=== PATIENT | male | born 1960 | race Caucasian/White ===

== ENCOUNTER 2017-05-13 10:44 | Observation (INO) | payer BC ==
[2017-05-13] MEDS ORDERED: NS 0.9% 1000 ML* 1,000 ML IV ONE (10:55)
[2017-05-13 11:17] LABS: ABS Basophils 0 10^3/ul (0-0.2); ABS Eosinophils 0.3 10^3/ul (0-0.6); ABS Monocytes 0.6 10^3/ul (0-0.8); ABS Neutrophils 3.8 10^3/ul (1.5-7.7); ABS Nucleated RBC 0 10^3/ul; Eosinophil % 3.4 % (0-6); Hematocrit 41 % (42-52); Hemoglobin 14.2 g/dl (14.0-18.0); Lymphocyte % 38.7 % (25-47); Mean Corpuscular HGB Conc 35 g/dl (31-36); Mean Corpuscular Hemoglobin 32 pg (27-31); Mean Corpuscular Volume 93 fL (80-94); Mean Platelet Volume 7 um3 (7.4-10.4); Nucleated Red Blood Cells % 0; Platelet Count 279 10^3/ul (150-450); Red Blood Count 4.38 10^6/ul (4.0-5.4); Red Cell Distribution Width 13 % (10.5-15); White Blood Count 7.7 10^3/ul (3.5-10.8)
--- NOTE | 2017-05-13 11:20 | RAD ---
HISTORY: Stroke, right jaw and arm numbness COMPARISONS: None TECHNIQUE: Multiple contiguous axial CT scans were obtained of the head without intravenous contrast. FINDINGS: HEMORRHAGE/INFARCT: There is no hemorrhage or acute infarct. MASSES/SHIFT: There is no mass or shift. EXTRA-AXIAL SPACES: There are no extra-axial fluid collections. SULCI AND VENTRICLES: The sulci and ventricles are normal in size and position for the patient's stated age. CEREBRUM: There are no focal parenchymal abnormalities. BRAINSTEM: There are no focal parenchymal abnormalities. CEREBELLUM: There are no focal parenchymal abnormalities. VESSELS: The vessels are grossly normal. PARANASAL SINUSES: The paranasal sinuses are clear. ORBITS: The orbits are unremarkable. BONES AND SOFT TISSUE: No bone or soft tissue abnormalities are noted. OTHER: None IMPRESSION: NO ACUTE INTRACRANIAL PATHOLOGY.
[2017-05-13 11:33] LABS: INR 0.91 (0.77-1.02)
[2017-05-13 11:42] LABS: EGFR Non-African American 76.5 (>60)
--- NOTE | 2017-05-13 12:41 | RAD ---
HISTORY: Neurological changes COMPARISONS: April 14, 2010 VIEWS: 1: frontal portable view of the chest at 12:08 PM FINDINGS: LINES AND TUBES: None. CARDIOMEDIASTINAL SILHOUETTE: The cardiomediastinal silhouette is normal for portable technique. PLEURA: The costophrenic angles are sharp. No pleural abnormalities are noted. LUNG PARENCHYMA: There is a nodular density of left lower lung field, likely a nipple shadow. This can be identified on the 2009 examination in retrospect and is stable. ABDOMEN: The upper abdomen is clear. There is no subphrenic gas. BONES AND SOFT TISSUES: No bone or soft tissue abnormalities are noted. IMPRESSION: NO ACTIVE CARDIOPULMONARY DISEASE.
[2017-05-13] MEDS ORDERED: Aspirin EC TAB* 325 MG PO ONE (13:20)
[2017-05-13] MEDS ORDERED: Iohexol 350* (CONTRAST) 500 ML MDV IV ONE (13:23)
--- NOTE | 2017-05-13 14:03 | RAD ---
HISTORY: TIA COMPARISONS: None TECHNIQUE: Multiple contiguous axial CT scans were obtained of the head and neck After the administration of nonionic intravenous contrast timed to the systemic arterial phase of contrast enhancement. Coronal and sagittal multiplanar reformations are submitted for review. Multiple 3-D maximum intensity projection reconstructions are also submitted for review. FINDINGS: CTA NECK: AORTIC ARCH: There is a bovine configuration, with the left common carotid artery originating from the brachiocephalic trunk. There is no ostial or proximal stenosis of the cephalic great vessels. RIGHT VERTEBRAL ARTERY: The right vertebral artery is patent along its course, without stenosis. LEFT VERTEBRAL ARTERY: The left vertebral artery is patent along its course, without stenosis. DOMINANCE: The vertebral arteries are codominant. RIGHT COMMON CAROTID ARTERY: The right common carotid artery is patent. The right carotid bifurcation occurs at C3-C4 RIGHT INTERNAL CAROTID ARTERY: There is no right internal carotid artery stenosis by NASCET criteria. RIGHT EXTERNAL CAROTID ARTERY: The right external carotid artery is unremarkable. LEFT COMMON CAROTID ARTERY: The left common carotid artery is patent. The left carotid bifurcation occurs at C3-C4 LEFT INTERNAL CAROTID ARTERY: There is no left internal carotid artery stenosis by NASCET criteria. LEFT EXTERNAL CAROTID ARTERY: The left external carotid artery is unremarkable. VENOUS CIRCULATION: The venous system is unremarkable. SALIVARY GLANDS: The parotid glands, submandibular glands, sublingual glands are normal. NASAL CAVITY/NASOPHARYNX: The nasal cavity and nasopharynx are normal. ORAL CAVITY/OROPHARYNX: The oral cavity is obscured by streak artifact from dental amalgam. The visualized oral cavity and oropharynx are unremarkable. LARYNGEAL APPARATUS/HYPOPHARYNX: The laryngeal apparatus and hypopharynx are normal. UPPER AIRWAY/UPPER ESOPHAGUS: The visualized upper airway and esophagus are normal. LUNG APICES: The lung apices are clear. THYROID GLAND: The thyroid gland is normal. LYMPH NODES: There is no lymphadenopathy by size criteria. BONES AND SOFT TISSUES: Degenerative changes are noted most pronounced at C6-C7. CTA HEAD: INTRACRANIAL CIRCULATION: There is no aneurysm, vascular malformation, occlusion, or stenosis of the visualized intracranial circulation. The anterior communicating artery complex is clear. A right posterior communicating artery is identified. VENOUS CIRCULATION: The venous system is unremarkable. PERFUSION: There is no obvious parenchymal perfusion deficit. HEMORRHAGE/INFARCT: There is no hemorrhage or acute infarct. MASSES/SHIFT: There is no mass or shift. EXTRA-AXIAL SPACES: There are no extra-axial fluid collections. SULCI AND VENTRICLES: The sulci and ventricles are normal in size and position for the patient's stated age. CEREBRUM: There are no focal parenchymal abnormalities. BRAINSTEM: There are no focal parenchymal abnormalities. CEREBELLUM: There are no focal parenchymal abnormalities. PARANASAL SINUSES: The paranasal sinuses are clear. ORBITS: The orbits are unremarkable. BONES AND SOFT TISSUE: No bone or soft tissue abnormalities are noted. OTHER: There is no abnormal enhancement. IMPRESSION: 1. NO INTERNAL CAROTID ARTERY STENOSIS BY NASCET CRITERIA. 2. NO ANEURYSM, VASCULAR MALFORMATION, OCCLUSION, OR STENOSIS OF THE VISUALIZED INTRACRANIAL CIRCULATION.. CPT II Codes: 3100F
[2017-05-13] MEDS ORDERED: Ondansetron INJ* 2 MG/ML VIAL IV PRN (14:13)
[2017-05-13] MEDS ORDERED: Acetaminophen TAB* 325 MG PO PRN (14:13)
--- NOTE | 2017-05-13 16:03 | RAD ---
Indication: Transient ischemic attack. Sagittal and axial T1, axial T2 FLAIR, diffusion, susceptibility weighted images of the brain were obtained. No prior study is available for comparison. Ventricular structures are midline. No midline shift is noted. The extraction spaces are unremarkable. There is no evidence of intracranial mass or hemorrhage. No other high or low signal lesions are identified. No restriction of diffusion is noted. Susceptibility weighted images demonstrates no evidence of susceptibility artifact. The FLAIR images demonstrates no evidence of abnormal signal. The calvaria is unremarkable. Mastoid air cells and paranasal sinuses are unremarkable. IMPRESSION: Unremarkable MRI of the brain.
--- NOTE | 2017-05-13 19:41 | HP ---
CC: Dr. Baker * HISTORY AND PHYSICAL: DATE OF ADMISSION: 05/13/17 PRIMARY CARE PHYSICIAN: None. ATTENDING PHYSICIAN WHILE IN THE HOSPITAL: José Miguel Marks MD * (report dictated by Ector Hogan NP). CHIEF COMPLAINT: 1. Right arm numbness. 2. Right facial numbness. HISTORY OF PRESENT ILLNESS: Mr. Reynolds is a 57-year-old male patient. He has a history of CAD. He has had a mild NH in the past, hypertension, hyperlipidemia, and ANGELINA. He comes in to our ER today stating that he woke up in the middle of the night last night. He had an episode where his arm felt funny, went back to bed. He woke up again and it was still there, lasted for about 30 minutes and then it went away, but he also noticed that the right side of his face was feeling funny as well. He says it felt like numbness and tingling both in the arm and in the face. He says it went away, but he was concerned because it was one sided. He did not have any weakness or any facial drooping. He lifted both of his arms and held them out in front of him and he did not notice any dropping in the arm. He denied having any trouble with his gait or any numbness or tingling to the leg, and no trouble with his speech, but he was concerned because of the numbness that it could maybe represent a stroke and he came in to the hospital to be evaluated. He denied having any chest pressure. No chest pain. He denied having any shortness of breath or any nausea associated with this. No visual disturbances. Again, no facial drooping. He came in to the ED. He was evaluated. There was concern for possible TIA and we were asked to evaluate for admission. PAST MEDICAL HISTORY: Significant for: 1. CAD. 2. NH. 3. History of hypertension. 4. Hyperlipidemia. 5. ANGELINA. PAST SURGICAL HISTORY: He has had inguinal hernia repair. MEDICATIONS: The home meds include: 1. Crestor 5 mg daily. 2. Benadryl 25 mg at bedtime as needed. 3. Lopressor 25 mg p.o. b.i.d. 4. Aspirin 81 mg at bedtime. ALLERGIES TO MEDICATIONS: Include no known drug allergies. FAMILY HISTORY: His mother's history was reviewed. He denies his mother having any heart attacks, strokes, diabetes. His father did have a history of CAD and questionable Parkinson's. SOCIAL HISTORY: He does not smoke. Rarely drinks alcohol. He is in real estate. Surrogate decision maker is his . REVIEW OF SYSTEMS: There is no documented fever. He denied having any significant weight change. There was no double vision. He denies having any ear discharge. There was no rhinorrhea. No sore throat. No thyroid enlargement. He denies having any chest pain or orthopnea. No nocturnal dyspnea. There was no abdominal pain. There was no nausea. No vomiting. No dysuria, no frequency. No seizure. No loss of consciousness. No pruritus. No skin ulcerations. Review of 14 systems completed, all others negative. PHYSICAL EXAMINATION GENERAL: At this time, Mr. Reynolds is a 57-year-old male patient. He is sitting in the ER stretcher. He does not appear to be in any acute distress. VITAL SIGNS: Blood pressure 115/82, pulse 66, respirations 18, O2 sat 98%, temperature 97.8. HEENT: Head: Atraumatic, normocephalic. Eyes: EOMs are intact. Sclerae anicteric and not pale. NECK: Supple. Throat: Oral mucosa appears to be moist. No oropharyngeal erythema. LUNGS: Clear to auscultation bilaterally. No wheezes, rales, or rhonchi. HEART: Sounds S1, S2. Regular rate and rhythm. No murmurs, rubs, or gallops. ABDOMEN: Soft. It was flat, nontender. Bowel sounds were present. EXTREMITIES: Pulses were 2+ throughout. He had 5/5 strength. No peripheral edema. NEUROLOGIC: The patient is awake, he is alert. His speech is clear. Tongue is midline. Cranial nerves II through XII were intact. [id number] intact bilaterally. Uruh-iq-qcll intact bilaterally. He had no gross focal deficits. SKIN: Grossly intact. DIAGNOSTIC STUDIES/LAB DATA: WBC is 7.7, RBC of 4.38, hemoglobin 14.2, hematocrit 41, platelet count 279,000. INR 0.91, PTT 26.2. Sodium was 137, potassium 4.1, chloride 108, bicarb 24, BUN 15, creatinine of 1, glucose of 106 , lactic 1.2, calcium of 9.2. Total bili 0.4, AST 17, ALT 18, alk phos 38. Troponin 0. Albumin of 4.1. LDL was 63. The patient did have a brain CT obtained today which revealed no acute intracranial pathology. Chest x-ray showed no acute cardiopulmonary disease. There was a CTA of the head and neck. No internal carotid artery stenosis by NASCET criteria. No aneurysm, vascular malformation, occlusion or stenosis were visualized in the cranial circulation. EKG obtained today showed normal sinus rhythm, rate of 69. No ST elevations or T- wave inversions were noted. Old medical records were reviewed. ASSESSMENT AND PLAN: Mr. Reynolds is a 57-year-old male patient with a known history of hypertension, hyperlipidemia, history of coronary artery disease, coming into ED today with complaints of numbness to the right arm. We were asked to evaluate for admission. He will be admitted under observation status for: 1. Right arm weakness. Concern for transient ischemic attack. At this point, Dr. Baker did evaluate the patient. Dr. Baker has already ordered MRI. He did order an echo as well. In addition to this, CTA has been done. We will the continue the patient on aspirin. We will get an A1c and lipid panel fasting in the morning. I will get neuro checks every 4 hours, place the patient on telemetry and will follow him closely. Again, Dr. Baker has already evaluated the patient. We will continue the patient on statin therapy for now and antiplatelet therapy and we will continue to follow him closely with neuro checks. 2. History of myocardial infarction and coronary artery disease. Continue the beta-blair, aspirin, statin therapy. 3. Hypertension. Continue the beta-blair. 4. Hyperlipidemia. Continue the statin therapy. 5. Obstructive sleep apnea. CPAP has been ordered. 6. DVT prophylaxis. I did order heparin subcu and SCDs. 7. Code status. Full code. 8. Fluids, electrolytes, nutrition. He can have a heart healthy diet. TIME SPENT: Time spent on the admission was approximately 60 minutes, greater than half the time was spent [id number] with the patient obtaining my history and physical, other half time was spent going over the plan of care with the patient and implementing plan of care. I did discuss the plan of care with my attending, Dr. Marks; he is in agreement. ECTOR HOGAN NP [id number]/[facility] #: [id number] GARO
[2017-05-13] MEDS: Metoprolol Tartrate TAB* 25 MG PO SCH (21:33)
[2017-05-13] MEDS: Heparin VIAL(*) 5000 UNITS/ML VIAL (FIVE THOUSAND) SUBCUT SCH (21:34)
--- NOTE | 2017-05-13 21:49 | CONS ---
CC: Leroy Sanz MD * CONSULTATION REPORT: DATE OF CONSULTATION: 05/13/17 CURRENT LOCATION: ED, bed 16. PRIMARY CARE PROVIDER: Leroy Sanz MD REASON FOR CONSULTATION: Right arm numbness and tingling, right face numbness and tingling. HISTORY OF PRESENT ILLNESS: Mr. Reynolds is a 57-year-old gentleman with a history of heart attack about 7 years ago, history of hypertension, hypercholesterolemia. He states that he does take a baby aspirin every night, but he has not taken one this morning. He has been in his usual state of health when last night at around 3 a.m. he woke up, he noticed that his right arm was numb, it involved his entire arm including the hand, it was circumferential. He states that he also felt some mild numbness in his right jaw and face. The symptoms he said lasted for approximately 30 to 45 minutes and then slowly improved. He went back to bed, when he got up this morning at 8 , he felt that he had some residual numbness in his right fingertips and that the numbness in his face had largely resolved. He denies any right lower extremity symptoms. He denies any left-sided symptoms. He denies any weakness. He had no speech changes, no vision changes, no headache, no facial droop that he is aware of, had no hearing loss or changes. He states that he does not feel weak nor did he feel weak at any point that he feels that his strength was full. He denies any recent illnesses, nausea, vomiting, diarrhea, constipation, fevers, chills, dysuria, frequency, urgency. He states that he is compliant with his medication. He denies any prior strokes. He is a previous smoker, but quit years ago. He said he occasionally will have a cigar. He has otherwise been in his usual state of health. He also has a history of sleep apnea and wears a CPAP at night. PAST MEDICAL HISTORY: Includes prior [place] 7 years ago, no stenting was done; hyperlipidemia; hypertension; sleep apnea. PAST SURGICAL HISTORY: Includes hernia repair. HOME MEDICATIONS: 1. Crestor 20 mg p.o. daily. 2. Metoprolol 25 mg p.o. b.i.d. 3. Aspirin 81 mg at night. ALLERGIES: No known drug allergies. FAMILY HISTORY: Significant for father with an [place]. No strokes in the family that he is aware of. History is otherwise noncontributory. SOCIAL HISTORY: He is a previous smoker, but none in years save for the occasional cigar. Drinks 2 to 3 glasses of wine per day. Denies any active drug use, although occasionally will smoke marijuana. He is semi-retired. He is building his own house. REVIEW OF SYSTEMS: In 14 organ systems as noted above, otherwise negative. PHYSICAL EXAMINATION: Blood pressure 115/82 to 131/107, pulse 66, respirations 16 to 25, pulse ox 96% to 98%. In general, he is a well-nourished, well- developed obese gentleman, sitting in his hospital [facility]. He is pleasant, well dressed, well groomed. HEENT: He is normocephalic, atraumatic. Sclerae anicteric. Mucous membranes are moist. Oropharynx is clear. Nares are patent. Neck: Supple. No thyromegaly. No carotid bruits. No meningismus. Chest: Clear to auscultation bilaterally. Cardiovascular: Regular rate and rhythm without murmurs, gallops, or rubs. Abdomen: Obese, nontender. Extremities: No clubbing, cyanosis, or edema. Skin: Warm and dry without lesions. Neurologic: He is awake, alert, oriented x3. His speech is fluent. There is no dysarthria. Repetition is intact. Recall of recent or remote events is intact. Vocabulary is intact. His mood is anxious. Affect, mood congruent. Cranial nerves II through XII. Pupils are equal, round, and reactive to light. Extraocular muscles are intact. Visual del cid are full. There is no nystagmus noted. His facial sensation is intact bilaterally. His face is symmetric. Hearing is intact bilaterally to finger rub. Tongue is midline. Palate raises symmetrically. Sternocleidomastoid and trapezius are both 5/5. Motor Exam: He is 5/5 through-out with tone and bulk normal. There is no drift in all 4 extremities. Sensation has largely resolved. He states that he has some mild tingling in his fingertips on the right side involving all fingertips, but there is no further numbness in the arms, legs, or face bilaterally. Intact to light touch and pinprick. His yrhkya-yo-fddv and rapid alternating movements are intact without dysmetria, tremor. DTRs are 1+ and symmetric in the upper and lower extremities with downgoing Babinski's bilaterally. NIH is calculated at zero. His paresthesias in the right hand are subjective in nature. There is no loss of sensation. DIAGNOSTIC STUDIES/LAB DATA: Lab work includes a CBC with diff significant for hematocrit of 41, MCH of 32, MPV of 7. INR of 0.91, PTT of 26.2. Complete metabolic profile is significant for a glucose of 106 to 110, lactic acid of 1.2. Triglycerides of 151, cholesterol of 133, LDL of 63, HDL of 39.9. CT of the head scan was personally reviewed, I see no acute intracranial abnormalities, agree with the radiologist's read. Echocardiogram, normal sinus rhythm, borderline left axis deviation, borderline T abnormalities in inferior leads, this is an unofficial interpretation. Chest x-ray, no active cardiopulmonary disease. ASSESSMENT AND PLAN: Mr. Reynolds is a 57-year-old gentleman with a history of prior myocardial infarction at about 7 years ago, hyperlipidemia, hypertension, both controlled with medication, history of sleep apnea, wears a CPAP at home. He does take a baby aspirin at night. No history of prior stroke. He presented to the hospital this morning after waking up at 3 a.m. with right arm and face numbness and tingling, lasted about 30 to 45 minutes, went back to sleep. When he woke up around 8 a.m., the symptoms had largely resolved with some subjective tingling in his fingertips on the right with no loss of sensation. His NIH stroke scale currently is calculated at 0. Given his history of coronary artery disease, his risk factors including hypertension and hypercholesterolemia, I am concerned that this could be a transient ischemic attack versus small stroke. That said, the plan is to bring him into the hospital for a full stroke workup. He will get an: 1. MRI of the brain without contrast. 2. CT angiogram of the head and neck. 3. Echocardiogram with bubble study. 4. Lab work to rule out reversible causes of stroke. 5. We will continue his aspirin, he has not received one this morning, I will give him a 325 mg dose now. Consider changing the Plavix, but we will hold for now. 6. Continue his Crestor. LDL cholesterol is good, less than 70. 7. Monitor him on the telemetry for any evidence of arrhythmias, which could be associated with an increased risk of stroke. 8. Given the fact that his symptoms are resolved, I would control his blood pressure as needed with medication adjustments currently. His last blood pressure was 131/107. He will be admitted for observation. 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 Thank you for the opportunity to participate in his care. We will continue to follow him closely. [id number]/[facility] #: [id number] GARO
[2017-05-14 05:21] LABS: ABS Basophils 0 10^3/ul (0-0.2); ABS Eosinophils 0.3 10^3/ul (0-0.6); ABS Lymphocytes 2.7 10^3/ul (1.0-4.8); ABS Monocytes 0.5 10^3/ul (0-0.8); ABS Neutrophils 2.9 10^3/ul (1.5-7.7); ABS Nucleated RBC 0 10^3/ul; Eosinophil % 4.9 % (0-6); Hematocrit 38 % (42-52); Hemoglobin 13.2 g/dl (14.0-18.0); Lymphocyte % 41.5 % (25-47); Mean Corpuscular HGB Conc 35 g/dl (31-36); Mean Corpuscular Hemoglobin 32 pg (27-31); Mean Corpuscular Volume 92 fL (80-94); Mean Platelet Volume 7 um3 (7.4-10.4); Nucleated Red Blood Cells % 0; Platelet Count 241 10^3/ul (150-450); Red Blood Count 4.14 10^6/ul (4.0-5.4); Red Cell Distribution Width 12 % (10.5-15); White Blood Count 6.5 10^3/ul (3.5-10.8)
[2017-05-14] MEDS: Heparin VIAL(*) 5000 UNITS/ML VIAL (FIVE THOUSAND) SUBCUT SCH ×2 (05:28→14:58)
[2017-05-14 05:33] LABS: EGFR Non-African American 74.8 (>60)
--- NOTE | 2017-05-14 08:07 | PN ---
Subjective Date of Service: 05/14/17 Interval History: No problems overnight. Numbness and tingling has resolved with no new symptoms. He feels well and anxious to go home today I personally reviewed his MRI brain and agree with the findings, No DWI/ADC change I reviewed CTA, no significant vascular disease I reviewed labwork: LDL cholesterol is good Echo pending Objective Active Medications: Acetaminophen (Tylenol Tab*) 650 mg PO Q4H PRN PRN Reason: FEVER/PAIN Aspirin (Aspirin Ec Low Dose*) 81 mg PO DAILY [facility] Atorvastatin Calcium (Lipitor*) 10 mg PO DAILY [facility] Heparin Sodium (Porcine) (Heparin Vial(*)) 5,000 units SUBCUT Q8HR [facility] Last Admin: 05/14/17 05:28 Dose: 5,000 units Metoprolol Tartrate (Lopressor Tab*) 25 mg PO BID [facility] Last Admin: 05/13/17 21:33 Dose: 25 mg Ondansetron HCl (Zofran Inj*) 4 mg IV Q6H PRN PRN Reason: NAUSEA Vital Signs 05/13/17 05/13/17 05/13/17 14:00 14:52 14:59 Temperature 98.6 F Pulse Rate 59 59 60 Respiratory 15 17 20 Rate Blood Pressure 123/80 123/80 (mmHg) O2 Sat by Pulse 98 95 95 Oximetry 05/13/17 05/13/17 05/13/17 16:11 19:02 20:00 Temperature 98.2 F 99.0 F Pulse Rate 60 69 Respiratory 16 20 20 Rate Blood Pressure 114/76 111/63 (mmHg) O2 Sat by Pulse 98 96 99 Oximetry 05/14/17 05/14/17 00:02 03:51 Temperature 98.4 F 97.7 F Pulse Rate 60 67 Respiratory 20 20 Rate Blood Pressure 115/82 110/66 (mmHg) O2 Sat by Pulse 99 94 Oximetry Oxygen Devices in Use Now: None Neurology Exam: General: Awake, Alert, Oriented x3 HEENT: Normocephelic/atraumatic, sclera anicteric, mucous membranes moist Neck: Supple Chest: Clear to auscultation bilaterally Cardiovascular: Regular rate and rhythm without murmurs, rubs, gallops Abdomen: Soft, nontender/nondistended Extremities: No clubbing, cyanosis, or edema Neurological Findings: Awake, Alert, Oriented x3 Speech: fluent without dysarthria, repetition intact Cranial Nerve: PEERL, EOM intact, VFF, no nystagmus, face symmetric bilaterally , facial sensation intact, hearing intact to finger rub bilaterally, palate elevates symmetrically, tongue midline Motor: 5/5 throughout, proximal and distal extremities x4 tone/bulk normal. No drift Sensation: intact to LT/PP bilaterally upper and lower extremities Deep Tendon Reflex: 2+ symmetric in the upper/lower extremities Finger to nose, rapid alternating movements intact without tremor Result Diagrams: 05/14/17 05:09 05/14/17 05:09 Assessment/Plan 57 year old with a history of [place], CAD, HTN, hyperlipidemia presented yesterday with right arm/face numbness, tingling 1. Workup at this point negative, awaiting Echocardiogram. If the Echo is ok, I am ok for discharge home with follow up. Likely TIA vs. Nerve compression in the right arm from sleeping on it. 2. Increase ASA to 325 mg q day, I spoke with patient about this 3. Continue Statin, LDL is good and within range 4. Continue control of HTN, good range 5. Non-smoker 6. I spoke with patient about returning to ER immediately with any new stroke like symptoms or return of symptoms 7. Needs follow up with me in 6-8 weeks.
[2017-05-14] MEDS ORDERED: Aspirin EC Low Dose* 81 MG TAB.EC PO SCH (09:00)
[2017-05-14] MEDS ORDERED: Atorvastatin* 10 MG TAB PO SCH (09:00)
[2017-05-14] MEDS: Metoprolol Tartrate TAB* 25 MG PO SCH (09:05)
--- NOTE | 2017-05-14 09:57 | PN ---
Subjective Date of Service: 05/14/17 Interval History: Patient seen and examined at bedside. Denies fever, chills, shortness of breath , chest discomfort, N/V/D, right UE weakness. Tele: Sinus rhythm, rate 60's. Family History: Unchanged from Admission Social History: Unchanged from Admission Past Medical History: Unchanged from Admission Objective Active Medications: Acetaminophen (Tylenol Tab*) 650 mg PO Q4H PRN Reason: FEVER/PAIN Aspirin (Aspirin Ec Low Dose*) 81 mg PO DAILY ERIC Atorvastatin Calcium (Lipitor*) 10 mg PO DAILY ERIC Heparin Sodium (Porcine) (Heparin Vial(*)) 5,000 units SUBCUT Q8HR ERIC Metoprolol Tartrate (Lopressor Tab*) 25 mg PO BID ERIC Ondansetron HCl (Zofran Inj*) 4 mg IV Q6H PRN Reason: NAUSEA Vital Signs - 8 hr 05/14/17 05/14/17 03:51 07:31 Temperature 97.7 F 98.1 F Pulse Rate 67 65 Respiratory 20 20 Rate Blood Pressure 110/66 106/72 (mmHg) O2 Sat by Pulse 94 94 Oximetry Oxygen Devices in Use Now: None Appearance: NAD, laying in bed Ears/Nose/Mouth/Throat: Mucous Membranes Moist Respiratory: Symmetrical Chest Expansion and Respiratory Effort, Clear to Auscultation Cardiovascular: NL Sounds; No Murmurs; No JVD, RRR Abdominal: NL Sounds; No Tenderness; No Distention Extremities: No Edema Skin: No Rash or Ulcers Neurological: Alert and Oriented x 3, NL Muscle Strength and Tone Lines/Tubes/Other Access: Clean, Dry and Intact Peripheral IV - site benign Nutrition: Taking PO's Result Diagrams: 05/14/17 05:09 05/14/17 05:09 Assess/Plan/Problems-Billing Mr. Reynolds is a 57 year old with a PMH significant for [place], CAD, HTN, hyperlipidemia who presented to the emergency room with right arm/face numbness and tingling - Patient Problems (1) Right arm weakness Code(s): R29.898 - OTH SYMPTOMS AND SIGNS INVOLVING THE MUSCULOSKELETAL SYSTEM SNOMED Code(s): 263698477 Comment: - Resolved - Suspect TIA vs. nerve compression - MRA head/neck and MRI brain pending - Echo pending - Neuro consult, input appreciated - ASA increased to 325 daily (2) CAD (coronary artery disease) Code(s): I25.10 - ATHSCL HEART DISEASE OF [place] CORONARY ARTERY W/O ANG PCTRS SNOMED Code(s): 18927362 Comment: - History, No chest pain at this time - Continue metoprolol, ASA and statin (3) HTN (hypertension) Code(s): I10 - ESSENTIAL (PRIMARY) HYPERTENSION SNOMED Code(s): 70048408 Comment: - Normotensive - Continue metoprolol (4) HLD (hyperlipidemia) Code(s): E78.5 - HYPERLIPIDEMIA, UNSPECIFIED SNOMED Code(s): 55242355 Comment: - Lipid panel WNL - Continue statin (5) ANGELINA (obstructive sleep apnea) Code(s): G47.33 - OBSTRUCTIVE SLEEP APNEA (ADULT) (PEDIATRIC) SNOMED Code(s): 56346578 Comment: - Continue CPAP (6) DVT prophylaxis Code(s): VBN9833 - SNOMED Code(s): 491164477 Comment: - SQ heparin and SCDs (7) Full code status Code(s): Z78.9 - OTHER SPECIFIED HEALTH STATUS SNOMED Code(s): 782803982 Status and Disposition: OBV. Discharge to home when medically stable, suspect later today.
[2017-05-14] MEDS ORDERED: Perflutren Lipid Microsphere* 3 ML VIAL ONE (11:59)
[2017-05-14 12:38] VITALS: BP 112/67
--- NOTE | 2017-05-14 14:27 | ECHO ---
Patient: JUAN SCHMITT [facility] Rec#: [id number] : 1960 Date: 05/14/2017 Age: 57y Height: 175.3 cm / 69.0 in Weight: 99.8 kg / 220.0 lbs Sex: M BSA: 2.15 Room#: [facility] Admit Date#: 05/13/2017 Type: Inpatient Referring: Layo Baker Reading: Carlos Eduardo Morton MD Wildland Firefighter: Maegan Jensen RN RDCS Wildland Firefighter: Mariam Wong RDCS CC: Leroy Sanz MD Transthoracic Echocardiogram Indication: TIA BP: 110/66 HR: 78 Rhythm: NSR Findings History: CAD, inferior wall ME in 2009, HTN, HLD, ANGELINA, increased BMI Technical Comments: The study is technically limited due to poor apical windows. The study is technically limited due to patient body habitus. Completed at 1310. Left Ventricle: The left ventricular chamber size is normal. Mild concentric left ventricular hypertrophy is observed. There is global hypokinesis of the left ventricle with minor regional variation. There is mildly decreased left ventricular systolic function. The estimated ejection fraction is 40-45%. There is an E to A reversal in the mitral valve flow pattern suggestive of diastolic dysfunction. Left Atrium: The left atrial chamber size is normal. Right Ventricle: The right ventricular cavity size is normal. The right ventricular global systolic function is mildly reduced. Right Atrium: The right atrial cavity size is normal. The bubble study is negative. A patent foramen ovale is not demonstrated with color Doppler and agitated contrast. Aortic Valve: The aortic valve is trileaflet. The aortic valve leaflets are mildly thickened. There is trace to mild aortic regurgitation. There is no evidence of aortic stenosis. Mitral Valve: Mild mitral annular calcification present. The mitral valve leaflets are mildly thickened. There is trace to mild mitral regurgitation. There is no evidence of mitral stenosis. Tricuspid Valve: The tricuspid valve leaflets are normal. There is trace tricuspid regurgitation. No pulmonary hypertension is noted. There is no tricuspid stenosis. Pulmonic Valve: The pulmonic valve appears normal. There is trace to mild pulmonic regurgitation. There is no pulmonic stenosis. Pericardium: There is no significant pericardial effusion. A pericardial fat pad is visualized. Aorta: There is mild dilatation of the ascending aorta. There is mild dilatation of the aortic arch. There is mild dilatation of the aortic root. Pulmonary Artery: The main pulmonary artery appears normal. Venous: The venous system is not well visualized. The inferior vena cava is not visualized. Contrast: Normal saline was used as contrast for the bubble study. Images 2 and 3 at end of study. Definity was used to enhance endocardial border definition. A total of 3 ml of diluted Definity was given IV. Summary: There was not any prior study for comparison. Conclusions The left ventricular chamber size is normal. Mild concentric left ventricular hypertrophy is observed. There is mildly decreased left ventricular systolic function. The estimated ejection fraction is 40-45%. There is an E to A reversal in the mitral valve flow pattern suggestive of diastolic dysfunction. There is global hypokinesis of the left ventricle with minor regional variation. A patent foramen ovale is not demonstrated with color Doppler and agitated contrast. There is trace to mild aortic regurgitation. There is trace to mild mitral regurgitation. There is trace tricuspid regurgitation. There is trace to mild pulmonic regurgitation. There is mild dilatation of the ascending aorta. There is mild dilatation of the aortic arch. There is mild dilatation of the aortic root. Measurements Name Value Normal Range RVDdMajor (2D) 3.9 cm (2.2 - 4.4) RAd ISD 4CH 5.3 cm (3.4 - 4.9) RA (A4C)W 3.5 cm (2.9 - 4.6) IVSd (2D) 1.2 cm (0.6 - 1) LVPWd (2D) 1.1 cm (0.6 - 1) LVIDd (2D) 4.7 cm (3.6 - 5.4) LVIDs (2D) 3.4 cm - LV FS (2D) 28 % (25 - 45) Aortic Annulus 2.1 cm (1.4 - 2.6) Ao root diameter (2D) 3.9 cm (2.1 - 3.5) Ascending Ao 4 cm (2.1 - 3.4) Aortic arch 3.6 cm (1.8 - 3.4) LA dimension (AP) 2D 3.2 cm (2.3 - 3.8) LAd ISD 4CH 4.8 cm (2.9 - 5.3) LA ISD 4CH W 4.1 cm (2.5 - 4.5) Name Value Normal Range MV E-wave Vmax 0.65 m/sec - MV deceleration time 230 msec - MV A-wave Vmax 0.95 m/sec - MV E:A ratio 0.68 ratio - LV septal e' Vmax 0.05 m/sec - LV lateral e' Vmax 0.06 m/sec - LV E:e' septal ratio 13 ratio - LV E:e' lateral ratio 10.8 ratio - Name Value Normal Range AV Vmax 1.1 m/sec - AV VTI 23.1 cm - AV peak gradient 4.8 mmHg - AV mean gradient 3.1 mmHg - LVOT Vmax 0.83 m/sec - LVOT VTI 16.5 cm - LVOT peak gradient 2.8 mmHg - LVOT mean gradient 1.5 mmHg - DOI (VTI) 0.71 ratio - DOI (Vmax) 0.75 ratio - CHRISS Vmax 0.7 m/sec - Name Value Normal Range TR Vmax 2.2 m/sec - TR peak gradient 19 mmHg - RAP 8 mmHg - RVSP 27 mmHg - Name Value Normal Range PV Vmax 0.64 m/sec -
--- NOTE | 2017-05-14 16:12 | ED ---
Caro Westfall Gabriel, scribed for Darryl Zhang MD on 05/13/17 at 1227 . Neurological HPI - HPI Summary HPI Summary: This patient is a 57 year old M presenting to [facility] with a chief complaint of LUE tingling since last night. Patient states he woke up in the middle of the night with his arm asleep which is not normal for him and it lasted about 20 minutes. Believes there is faint numbness in his hand. The patient rates the pain 0/10 in severity. Symptoms alleviated spontaneously. Patient reports general malaise, faint numbness in right hand currently, sensation in the jaw and right arm pit. Patient denies CP, double vision, aphasia, rash, and neck pain. Patient googled his symptoms this morning and is concerned for a possible CVA. Additionally patient states his mother believes that his father has Parkinsons and he believes the he has slight tremors as well. Hx of MD 7 years ago. - History of Current Complaint Chief Complaint: EDNeurologicalDeficit Stated Complaint: STROKE LIKE SYMPTOMS Time Seen by Provider: 05/13/17 10:55 Hx Obtained From: Patient Onset/Duration: Resolved Timing: Intermittent Episodes Lasting: - 20 min Onset Severity: Mild Current Severity: None Pain Intensity: 0 Pain Scale Used: 0-10 Numeric Syncope Context: Loss of Consciousness: No Alleviating: Spontanious Resolution Associated Signs and Symptoms: Positive: Negative - CP, double vision, aphasia, rash, and neck pain. - Allergy/Home Medications Allergies/Adverse Reactions: Allergies Allergy/AdvReac Type Severity Reaction Status Date / Time No Known Allergies Allergy Verified 09/30/12 10:53 Home Medications: Home Medications diPHENhydraMINE PO* [Benadryl PO 25 MG TAB*] 25 mg PO BEDTIME PRN 05/13/17 [ History Confirmed 05/13/17] PMH/Surg Hx/FS Hx/Imm Hx Endocrine/Hematology History: Denies: Hx Diabetes, Hx Thyroid Disease Cardiovascular History: Reports: Hx Hypercholesterolemia Denies: Hx Hypertension, Hx Pacemaker/ICD Respiratory History: Denies: Hx Asthma, Hx Chronic Obstructive Pulmonary Disease (COPD) GI History: Denies: Hx Ulcer Sensory History: Denies: Hx Hearing Aid Psychiatric History: Denies: Hx Panic Disorder - Surgical History Surgery Procedure, Year, and Place: inguinal hernia repair, cardiac cath 04/04 Infectious Disease History: No Infectious Disease History: Denies: Hx Hepatitis, Hx Human Immunodeficiency Virus (HIV), Traveled Outside the [place] in Last 30 Days - Family History Known Family History: Positive: Cardiac Disease, Hypertension Negative: Diabetes, Renal Disease, Respiratory Disease, Seizure Disorder, Blood Disorder - Social History Alcohol Use: Rare Substance Use Type: Reports: None Smoking Status (MU): Never Smoked Tobacco Review of Systems Positive: Other - general malaise . Negative: Fever, Chills Negative: Blurred Vision, Erythema Negative: Sore Throat Negative: Chest Pain Negative: Shortness Of Breath, Cough Negative: Abdominal Pain, Vomiting, Nausea Negative: dysuria, hematuria Musculoskeletal: Negative - neck pain Negative: Myalgia, Edema Negative: Rash Neurological: Negative - dizziness , Other - faint numbness in right hand currently, sensation in the jaw and right arm pit Negative: Paresthesia All Other Systems Reviewed And Are Negative: Yes Physical Exam - Summary Physical Exam Summary: Constitutional: Well-developed, Well-nourished, Alert. (-) Distressed Skin: Warm, Dry HENT: Normocephalic; Atraumatic Eyes: Conjunctiva normal Neck: Musculoskeletal ROM normal neck. (-) JVD, (-) Stridor, (-) Tracheal deviation Cardio: Rhythm regular, rate normal, Heart sounds normal; Intact distal pulses; The pedal pulses are 2+ and symmetric. Radial pulses are 2+ and symmetric. (-) Murmur Pulmonary/Chest wall: Effort normal. (-) Respiratory distress, (-) Wheezes, (-) Rales Abd: Soft, (-) Tenderness, (-) Distension, (-) Guarding, (-) Rebound Musculoskeletal: (-) Edema Lymph: (-) Cervical adenopathy Neuro: Alert, Oriented x3 Psych: Mood and affect Normal Triage Information Reviewed: Yes Vital Signs On Initial Exam: Initial Vitals Temp Pulse Resp BP Pulse Ox 97.8 F 75 16 134/86 99 05/13/17 10:45 05/13/17 10:45 05/13/17 10:45 05/13/17 10:45 05/13/17 10:45 Vital Signs Reviewed: Yes - [place] Coma Scale Coma Scale Total: 15 Diagnostics - Vital Signs Vital Signs Temp Pulse Resp BP Pulse Ox 05/13/17 12:00 61 18 131/107 98 05/13/17 11:30 64 25 115/82 96 05/13/17 11:23 97 05/13/17 11:15 128/93 05/13/17 11:10 71 21 98 05/13/17 11:03 24 05/13/17 10:45 97.8 F 75 16 134/86 99 - Laboratory Lab Results: Lab Results 05/13/17 05/13/17 05/13/17 Range/Units 11:05 11:05 11:05 WBC 7.7 (3.5-10.8) 10^3/ul RBC 4.38 (4.0-5.4) 10^6/ul Hgb 14.2 (14.0-18.0) g/dl Hct 41 L (42-52) % MCV 93 (80-94) fL MCH 32 H (27-31) pg MCHC 35 (31-36) g/dl RDW 13 (10.5-15) % Plt Count 279 (150-450) 10^3/ul MPV 7 L (7.4-10.4) um3 Neut % (Auto) 49.7 (38-83) % Lymph % (Auto) 38.7 (25-47) % [place] % (Auto) 7.7 (1-9) % Eos % (Auto) 3.4 (0-6) % Baso % (Auto) 0.5 (0-2) % Absolute Neuts (auto) 3.8 (1.5-7.7) 10^3/ul Absolute Lymphs (auto) 3.0 (1.0-4.8) 10^3/ul Absolute Monos (auto) 0.6 (0-0.8) 10^3/ul Absolute Eos (auto) 0.3 (0-0.6) 10^3/ul Absolute Basos (auto) 0 (0-0.2) 10^3/ul Absolute Nucleated RBC 0 10^3/ul Nucleated RBC % 0 INR (Anticoag Therapy) 0.91 (0.77-1.02) APTT 26.2 (26.0-36.3) seconds Sodium 137 (133-145) mmol/L Potassium 4.1 (3.5-5.0) mmol/L Chloride 108 (101-111) mmol/L Carbon Dioxide 24 (22-32) mmol/L Anion Gap 5 (2-11) mmol/L BUN 15 (6-24) mg/dL Creatinine 1.00 (0.67-1.17) mg/dL Est GFR ( Amer) 98.4 (>60) Est GFR (Non-Af Amer) 76.5 (>60) BUN/Creatinine Ratio 15.0 (8-20) Glucose 106 H (70-100) mg/dL POC Glucose (mg/dL) (70-100) mg/dL Lactic Acid (0.5-2.0) mmol/L Calcium 9.2 (8.6-10.3) mg/dL Total Bilirubin 0.40 (0.2-1.0) mg/dL AST 17 (13-39) U/L ALT 18 (7-52) U/L Alkaline Phosphatase 38 (34-104) U/L Troponin I 0.00 (<0.04) ng/mL Total Protein 7.0 (6.4-8.9) g/dL Albumin 4.1 (3.2-5.2) g/dL Globulin 2.9 (2-4) g/dL Albumin/Globulin Ratio 1.4 (1-3) Triglycerides 151 mg/dL Cholesterol 133 mg/dL LDL Cholesterol 63 mg/dL HDL Cholesterol 39.9 mg/dL Blood Type Antibody Screen 05/13/17 05/13/17 05/13/17 Range/Units 11:05 11:05 11:23 WBC (3.5-10.8) 10^3/ul RBC (4.0-5.4) 10^6/ul Hgb (14.0-18.0) g/dl Hct (42-52) % MCV (80-94) fL MCH (27-31) pg MCHC (31-36) g/dl RDW (10.5-15) % Plt Count (150-450) 10^3/ul MPV (7.4-10.4) um3 Neut % (Auto) (38-83) % Lymph % (Auto) (25-47) % [place] % (Auto) (1-9) % Eos % (Auto) (0-6) % Baso % (Auto) (0-2) % Absolute Neuts (auto) (1.5-7.7) 10^3/ul Absolute Lymphs (auto) (1.0-4.8) 10^3/ul Absolute Monos (auto) (0-0.8) 10^3/ul Absolute Eos (auto) (0-0.6) 10^3/ul Absolute Basos (auto) (0-0.2) 10^3/ul Absolute Nucleated RBC 10^3/ul Nucleated RBC % INR (Anticoag Therapy) (0.77-1.02) APTT (26.0-36.3) seconds Sodium (133-145) mmol/L Potassium (3.5-5.0) mmol/L Chloride (101-111) mmol/L Carbon Dioxide (22-32) mmol/L Anion Gap (2-11) mmol/L BUN (6-24) mg/dL Creatinine (0.67-1.17) mg/dL Est GFR ( Amer) (>60) Est GFR (Non-Af Amer) (>60) BUN/Creatinine Ratio (8-20) Glucose (70-100) mg/dL POC Glucose (mg/dL) 110 H (70-100) mg/dL Lactic Acid 1.2 (0.5-2.0) mmol/L Calcium (8.6-10.3) mg/dL Total Bilirubin (0.2-1.0) mg/dL AST (13-39) U/L ALT (7-52) U/L Alkaline Phosphatase (34-104) U/L Troponin I (<0.04) ng/mL Total Protein (6.4-8.9) g/dL Albumin (3.2-5.2) g/dL Globulin (2-4) g/dL Albumin/Globulin Ratio (1-3) Triglycerides mg/dL Cholesterol mg/dL LDL Cholesterol mg/dL HDL Cholesterol mg/dL Blood Type A Positive Antibody Screen Negative Result Diagrams: 05/14/17 05:09 05/14/17 05:09 Lab Statement: Any lab studies that have been ordered have been reviewed, and results considered in the medical decision making process. - Radiology CXR Radiology Interpretation Completed By: Radiologist - no active cardiopulmonary disease. ED physician has reviewed this radiology report. - CT CT brain CT Interpretation Completed By: Radiologist - no acute intracranial pathology ED physician has reviewed this radiology report. - EKG 10:58 Cardiac Rate: NL EKG Rhythm: Sinus Rhythm - at 69 BPM EKG Interpretation: No STEMI NIH Scale - NIH Scale Level of Consciousness: Alert/Keenly Responsive Ask Patient the Month and His/Her Age: Both Correct Ask Pt to Open/Close Eyes and Zoning Administrator/Release Non-Paretic Hand: Both Correctly Best Gaze (Only Horizontal Eye Movement): Normal Visual Field Testing: No Visual Loss Facial Paresis-Pt to Smile & Close Eyes or Grimace Symmetry: Normal/Symmetrical Motor Function - Right Arm: No Drift-Holds 10 Seconds Motor Function - Left Arm: No Drift-Holds 10 Seconds Motor Function - Right Leg: No Drift-Holds 10 Seconds Motor Function - Left Leg: No Drift-Holds 10 Seconds Limb Ataxia-Must be out of Proportion to Weakness Present: Absent Sensory (Use Pinprick to Test Arms/Legs/Trunk/Face): Normal Best Language (Describe Picture, Name Items): No Aphasia Dysarthria (Read Several Words): Normal Extinction and Inattention: No Abnormality Total Score: 0 NIH Stroke Scale Comment: reports tingling sensation in right hand Re-Evaluation - Re-Evaluation First Eval Re-Evaluation Time: 12:38 Change: Improved Comment: Patient does not have sensation in his face currently. Course/Dx - Course Assessment/Plan: This patient is a 57 year old M presenting to [facility] with a chief complaint of LUE tingling since last night. Patient states he woke up in the middle of the night with his arm asleep which is not normal for him and it lasted about 20 minutes. Believes there is faint numbness in his hand. The patient rates the pain 0/10 in severity. Symptoms alleviated spontaneously. Patient reports general malaise, faint numbness in right hand currently, sensation in the jaw and right arm pit. Patient denies CP, double vision, aphasia, rash, and neck pain. Patient googled his symptoms this morning and is concerned for a possible CVA. Additionally patient states his mother believes that his father has Parkinsons and he believes the he has slight tremors as well. Hx of MD 7 years ago. An EKG reveals NSR. CT brain reveals, per radiologist, no acute intracranial pathology. CXR reveals, no active cardiopulmonary disease. ED physician has reviewed this radiology report. Test results with no significant abnormalities. In the ED course the patient was given IV fluids and ASA. We discussed patient care with Dr. Baker and they recommended admission to rule out TIA. Patient will be admitted for a possible TIA. The patient is agreeable with this plan. - Diagnoses Provider Diagnoses: TIA (transient ischemic attack) - Physician Notifications Discussed Care Of Patient With: Rashad Marks Time Discussed With Above Provider: 13:17 Instructed by Provider To: Admit As Inpatient Discharge - Discharge Plan Condition: Stable Disposition: ADMITTED TO [facility] Consult Consult: 1300We discussed patient care with Dr. Baker and they recommended admission to rule out TIA. The documentation as recorded by the Caro brar Gabriel accurately reflects the service I personally performed and the decisions made by , Darryl Zhang MD.
--- NOTE | 2017-05-15 05:46 | DS ---
CC: Dr. Leroy Sanz; Dr. Layo Baker; Gregorio Dow NP * DISCHARGE SUMMARY: DATE OF ADMISSION: 05/13/17 DATE OF DISCHARGE: 05/14/17 ATTENDING PHYSICIAN: Dr. Matt Whitney * (dictated by Shahnaz Ngo NP) . PRIMARY CARE PROVIDER: Gregorio Dow NP CONVALESCENT SITTER: Leroy Sanz MD PRIMARY DIAGNOSIS: Right arm weakness, suspect transient ischemic attack versus nerve compression. SECONDARY DIAGNOSES: 1. History of coronary artery disease, status post myocardial infarction. 2. Hypertension. 3. Hyperlipidemia. 4. Obstructive sleep apnea. CONSULTATIONS WHILE IN THE HOSPITAL: Dr. Lyao Baker with Neurology. STUDIES WHILE IN THE HOSPITAL: 1. Brain CT on 05/13/17. Radiologist's impression: No acute intracranial pathology. 2. Chest x-ray on 05/13/17. Radiologist's impression: No acute cardiopulmonary disease. 3. Brain MRI on 05/13/17. Radiologist's impression: Unremarkable MRI of the brain. 4. Head CTA on 05/13/17. Radiologist's impression: No internal carotid artery stenosis by NASCET criteria. No aneurysm, vascular malformation, occlusion or stenosis of the visualized intracranial circulation. 5. Transthoracic echocardiogram on 05/14/17. Environmental Field Professional's conclusion: The left ventricular chamber size is normal. Mild concentric left ventricular hypertrophy is observed. There is mildly decreased left ventricular systolic function. The estimated ejection fraction is 40% to 45%. There is an E to A reversal in the mitral valve flow pattern suggestive of diastolic dysfunction. There is global hypokinesis of the left ventricle with minor regional variation. A patent foramen ovale is not demonstrated with color Doppler and agitated contrast. There is trace- to-mild aortic regurgitation, trace to mild mitral regurgitation, trace tricuspid regurgitation, trace to mild pulmonic regurgitation. There is mild dilation of the ascending aorta, mild dilation of the aortic arch, and mild dilation of the aortic root. DISCHARGE MEDICATIONS: New home medication: 1. Aspirin 325 mg oral daily. Continued home medications: 1. Crestor 5 mg oral daily. 2. Benadryl 25 mg oral daily at bedtime as needed for insomnia. 3. Metoprolol tartrate 25 mg oral twice daily. Discontinued home medications: 1. Aspirin 81 mg. HISTORY OF PRESENT ILLNESS/HOSPITAL COURSE: Mr. Reynolds is a 57-year-old male with a past medical history significant for coronary artery disease, myocardial infarction, hypertension, hyperlipidemia and obstructive sleep apnea, who presented to the emergency room with complaints of waking up in the middle of the night with his right arm feeling funny and then he went back to bed. The patient states that he woke up again and noticed that the funny feeling was still there and lasted about 30 minutes and then went away. He also noted that he felt that the right side of his face felt funny. He described it as a numbness and tingling both in his arm and in his face. Due to it being located on one side, he decided to present to the emergency room. While in the emergency room, the patient had a negative brain CT and the hospitalists were asked to evaluate the patient for admission for a possible TIA and continued workup. While in the hospital, the patient was seen in consultation by Dr. Baker with Neurology. He had a CT of his head and neck that was negative. He had an MRI of his brain that was negative. The transthoracic echocardiogram showing mildly reduced EF, diastolic dysfunction, and a global left ventricular hypokinesis. During his stay, his symptoms had resolved. The aspirin was increased from 81 mg to 325 mg. It was felt that his symptoms could represent a nerve compression or a TIA. It was felt that the patient could be discharged home today. Mr. Reynolds is stable for discharge to home today. Vital signs are as follows: Temperature 98.5, heart rate 69, respiratory rate 24, O2 sat 95% on room air, blood pressure 112/67. DISCHARGE PLAN: Mr. Reynolds will be discharged to home. Activity as tolerated. He should be on a heart healthy diet. As far as his right arm numbness and tingling, this has resolved. I suspect that this could represent a TIA or a nerve compression. Lipid panel was within normal limits. He was continued on his home Crestor. His aspirin was increased to 325 mg daily. He has an appointment with Dr. Baker with Neurology on 06/08/17 at 10:30 a.m. The patient has been established with a new primary care provider. He has an appointment with Gregorio Dow on 05/20/17 at 3:15 p.m. As far as the patient's slight abnormalities seen on his echocardiogram, I have recommended that he follow up with Dr. Sanz. I have asked him to please call and set up a followup appointment. The patient has been resumed on his other usual home medications. He has been asked to return to the emergency room for any shortness of breath, chest discomfort, or signs of a stroke such as one-sided weakness, difficulty with speech, or facial drooping. This is a summarized report of a complex medical history and hospital stay. For further details, please see the entire medical record. TIME SPENT: Time for this discharge was approximately 50 minutes, greater than half of that was spent with the patient discussing discharge plans and instructions. CONDITION ON DISCHARGE: Stable. Reviewed by KATINA MORENO 05/15/17 1620 [id number]/[facility] #: [id number] GAR[place]
== END 2017-05-14 15:19 | disposition home or self-care (01) ==
LOC: ED 10:44 → INTOOBSV 13:59 → MEDTELE 13:59
PROVIDERS: ADMIT Internal Medicine; ATTEND Internal Medicine
DX: R53.1 Weakness (principal); I25.10 Atherosclerotic heart disease of native coronary artery without angina pectoris; I25.83 Coronary atherosclerosis due to lipid rich plaque; I10 Essential (primary) hypertension; I25.2 Old myocardial infarction; E78.5 Hyperlipidemia, unspecified; G47.33 Obstructive sleep apnea (adult) (pediatric); Z79.899 Other long term (current) drug therapy; I51.7 Cardiomegaly; R20.0 Anesthesia of skin; R20.2 Paresthesia of skin
CPT/HCPCS: 36415; 70450; 70496; 70498; 70551; 71045; 80048; 80053; 80061; 82607; 83036; 83090; 83605; 84439; 84443; 84484; 85025; 85610; 85730; 86038; 86850; 86900; 86901; 93005; 93306; 94660; 96360; 99284; A9270-GY; C8929; G0378; J1644; Q9967